=== PATIENT | male | born 1970 | race Caucasian/White ===

== ENCOUNTER 2020-08-15 10:30 | Emergency (ER) | payer MEDICARE, MEDICAID ==
[2020-08-15] MEDS ORDERED: Acetaminophen 325 MG TAB ONE (12:44)
== END 2020-08-15 13:25 | disposition home or self-care (01) ==
LOC: ERS 10:30
DX: S69.91XA Unspecified injury of right wrist, hand and finger(s), initial encounter (principal); W23.0XXA Caught, crushed, jammed, or pinched between moving objects, initial encounter